=== PATIENT | female | born 1980 | race American Indian/Alaskan Native ===

== ENCOUNTER 2018-01-08 11:52 | Emergency (ER) | payer MEDICAID ==
[2018-01-08 11:57] VITALS: BMI 43.0
[2018-01-08 12:02] VITALS: RESP 18; TEMP 99.4
--- NOTE | 2018-01-08 13:19 | ED PDOC ---
Arrival/HPI - General Chief Complaint: Abdominal Pain Time Seen by Provider: 01/08/18 12:16 Historian: Patient - History of Present Illness Narrative History of Present Illness (Text): you were treated in the ED today for having intermittent menstrual spotting for several months, and scar discomfort from your prior site about 7 years ago and otherwise without any nausea/vomiting/headache/dizziness/ difficulty breathing/chest pain/abdomen pain/numbness/tingling/loss of limb function/pain with urination/vaginal discharge. You refused sexual disease testing or treatment at this time. 01/08/18 13:17 01/08/18 13:17 Time/Duration: > month (2) Symptom Onset: Gradual Symptom Course: Intermittent Quality: Aching Severity Level: 1 Activities at Onset: Rest Context: Sitting Past Medical History - Provider Review Nursing Documentation Reviewed: Yes - Travel History Have you recently traveled outside [place] w/in the past 3 mons?: No - Infectious Disease Hx of Infectious Diseases: None - Cardiac Hx Hypertension: Yes - Endocrine/Metabolic Hx Diabetes Mellitus Type 2: Yes - Psychiatric Hx Substance Use: No - Surgical History Hx Section: Yes (x2) - Anesthesia Hx Anesthesia Reactions: No Hx Malignant Hyperthermia: No Family/Social History - Physician Review Nursing Documentation Reviewed: Yes Family/Social History: No Known Family HX Smoking Status: Former Smoker Hx Alcohol Use: Yes Frequency of alcohol use: Socially Hx Substance Use: No Allergies/Home Meds Allergies/Adverse Reactions: Allergies No Known Allergies Allergy (Verified 01/08/18 12:12) Review of Systems - Review of Systems Constitutional: Normal Eyes: Normal ENT: Normal Respiratory: Normal Cardiovascular: Normal Gastrointestinal: Normal Genitourinary Female: Normal, Vaginal Bleeding, Other (pelvic discomfort) Musculoskeletal: Normal Skin: Normal Neurological: Normal Endocrine: Normal Hemo/Lymphatic: Normal Psychiatric: Normal Physical Exam Vital Signs Reviewed: Yes Vital Signs Temp Pulse Resp BP Pulse Ox 01/08/18 11:52 99.4 F 67 18 123/81 98 Temperature: Afebrile Blood Pressure: Hypertensive Pulse: Regular Respiratory Rate: Normal Appearance: Positive for: Well-Appearing, Non-Toxic, Comfortable Pain Distress: None Mental Status: Positive for: Alert and Oriented X 3 - Systems Exam Head: Present: Atraumatic, Normocephalic Pupils: Present: PERRL Extroacular Muscles: Present: EOMI Conjunctiva: Present: Normal Ears: Present: Normal Mouth: Present: Moist Mucous Membranes Pharnyx: Present: Normal Nose (External): Present: Atraumatic Nose (Internal): Present: Normal Inspection Neck: Present: Normal Range of Motion Respiratory/Chest: Present: Clear to Auscultation, Good Air Exchange Cardiovascular: Present: Regular Rate and Rhythm Abdomen: No: Tenderness, Distention, Normal Bowel Sounds, Peritoneal Signs, Rebound, Guarding, McBurney's Point Tender, Rovsing's Sign Present, Hernias, Feeding Tubes, Ostomy Tubes, Mass/Organomegaly, Scars, Other Back: Present: Normal Inspection Upper Extremity: Present: Normal Inspection Lower Extremity: Present: Normal Inspection Neurological: Present: GCS=15, CN II-XII Intact, Speech Normal, Motor Func Grossly Intact Skin: Present: Warm, Normal Color Psychiatric: Present: Alert, Oriented x 3, Normal Insight, Normal Concentration Medical Decision Making ED Course and Treatment: you were treated in the ED today for having intermittent menstrual spotting for several months, and scar discomfort from your prior site about 7 years ago and otherwise without any nausea/vomiting/headache/dizziness/ difficulty breathing/chest pain/abdomen pain/numbness/tingling/loss of limb function/pain with urination/vaginal discharge. You refused sexual disease testing or treatment at this time. You were otherwise breathing easily, pink moist lips, smiling and talking easily, good strength/sensation, alert/oriented , walking easily, clear lungs, no abdomen tenderness, refused pelvic exam and cautioned for complications and you stated will followup in gynecology clinic, no fever temp 99.4, stable heart rate 67, stable breathing rate 18, excellent oxygen level 98% room air, elevated blood pressure 123/81_ which we recommend repeat in 2-3 days primary care office to determine further treatment, you have blood tests no infection count 5, stable blood level hemoglobin 12/platelets 357 , stable chemistry, except mild elevated liver AST 45, urine test no acute sign of infection, urine test negative, radiology ultrasound pelvis unremarkable, motrin, observation done in the ED with improvement, you had mentioned intermittent symptoms and thus had a long discussion regarding further radiology imaging CT abdomen/pelvis but you refused and cautioned for complications but you stated you will followup with your gynecology physician Dr. Park for further radiology imaging, counselled to monitor symptoms and you wanted to go home. 1. Recommend motrin as directed for pain. 2. Recommend follow -up primary care 2 days to review symptoms, referral to gynecology clinic, referral to urology for trace blood in urine to ensure no complications, referral to gastroenterology clinic for mildly elevated liver AST 45 to ensure no complications. 4. If any worsening pain, fever, chills, nausea, vomiting, difficulty breathing, numbness, loss of limb function, pain with urination or any medical condition then return to the ED. lipase normal 134 01/08/18 16:03 01/08/18 16:10 01/08/18 16:12 Reassessment Condition: Re-examined, Improved - Lab Interpretations Lab Results: 01/08/18 13:43 01/08/18 13:43 Lab Results 01/08/18 13:43: Sodium 138, Potassium 4.0, Chloride 103, Carbon Dioxide 25, Anion Gap 15, BUN 12, Creatinine 0.8, Est GFR ( Amer) > 60, Est GFR (Non- Af Amer) > 60, Random Glucose 98, Calcium 10.0, Total Bilirubin 0.3, AST 45 H, ALT 40, Alkaline Phosphatase 45, Total Protein 8.6 H, Albumin 4.7, Globulin 3.9 , Albumin/Globulin Ratio 1.2, Lipase 134 01/08/18 13:43: Urine Color Yellow, Urine Appearance Clear, Urine pH 7.0, Ur Specific [place] 1.020, Urine Protein Negative, Urine Glucose (UA) Negative, Urine Ketones Negative, Urine Blood Trace-intact H, Urine Nitrate Negative, Urine Bilirubin Negative, Urine Urobilinogen 0.2, Ur Leukocyte Esterase Negative , Urine RBC 0 - 2, Urine WBC Negative, Ur Epithelial Cells 0 - 2, Urine Bacteria Neg 01/08/18 13:43: PT 11.8, INR 1.03, APTT 25.2 01/08/18 13:43: WBC 5.6, RBC 4.56, Hgb 12.3, Hct 37.3, MCV 81.8, MCH 27.0, MCHC 33.0, RDW 13.3, Plt Count 357, MPV 9.4, Gran % 56.5, Lymph % (Auto) 35.9 H, [place] % (Auto) 5.2, Eos % (Auto) 2.0, Baso % (Auto) 0.4, Gran # 3.15, Lymph # ( Auto) 2.0, [place] # (Auto) 0.3, Eos # (Auto) 0.1, Baso # (Auto) 0.02 I have reviewed the lab results: Yes - RAD Interpretation Radiology Orders: 01/08/18 13:14 PELVIS ULTRASOUND [US] Stat - Medication Orders Current Medication Orders: Discontinued Medications Ibuprofen (Motrin Tab) 800 mg PO STAT STA Stop: 01/08/18 13:17 Disposition/Present on Arrival - Present on Arrival Any Indicators Present on Arrival: No History of DVT/PE: No History of Uncontrolled Diabetes: No Urinary Catheter: No History of Decub. Ulcer: No History Surgical Site Infection Following: None - Disposition Have Diagnosis and Disposition been Completed?: Yes Diagnosis: Pelvic pain Disposition: HOME/ ROUTINE Disposition Time: 16:12 Patient Plan: Discharge Patient Problems: Current Active Problems Problem Status Onset Pelvic pain Acute Condition: IMPROVED Discharge Instructions (ExitCare): Acute Pelvic Pain (DC) Additional Instructions: ou were treated in the ED today for having intermittent menstrual spotting for several months, and scar discomfort from your prior site about 7 years ago and otherwise without any nausea/vomiting/headache/dizziness/ difficulty breathing/chest pain/abdomen pain/numbness/tingling/loss of limb function/pain with urination/vaginal discharge. You refused sexual disease testing or treatment at this time. You were otherwise breathing easily, pink moist lips, smiling and talking easily, good strength/sensation, alert/oriented , walking easily, clear lungs, no abdomen tenderness, refused pelvic exam and cautioned for complications and you stated will followup in gynecology clinic, no fever temp 99.4, stable heart rate 67, stable breathing rate 18, excellent oxygen level 98% room air, elevated blood pressure 123/81_ which we recommend repeat in 2-3 days primary care office to determine further treatment, you have blood tests no infection count 5, stable blood level hemoglobin 12/platelets 357 , stable chemistry, except mild elevated liver AST 45, urine test no acute sign of infection, urine test negative, radiology ultrasound pelvis unremarkable, motrin, observation done in the ED with improvement, you had mentioned intermittent symptoms and thus had a long discussion regarding further radiology imaging CT abdomen/pelvis but you refused and cautioned for complications but you stated you will followup with your gynecology physician Dr. Park for further radiology imaging, counselled to monitor symptoms and you wanted to go home. 1. Recommend motrin as directed for pain. 2. Recommend follow -up primary care 2 days to review symptoms, referral to gynecology clinic, referral to urology for trace blood in urine to ensure no complications, referral to gastroenterology clinic for mildly elevated liver AST 45 to ensure no complications. 4. If any worsening pain, fever, chills, nausea, vomiting, difficulty breathing, numbness, loss of limb function, pain with urination or any medical condition then return to the ED. Forms: [email or web address] ([place])
[2018-01-08 13:51] LABS: BASO # 0.02 K/mm3 (0.0-2.0); BASO % 0.4 % (0.0-3.0); EOS # 0.1 (0.0-0.7); GRAN # 3.15 (1.4-6.5); GRAN % 56.5 % (50.0-68.0); HEMOGLOBIN 12.3 g/dL (12.0-16.0); LYMPH % 35.9 % (22.0-35.0); MEAN CELL VOLUME 81.8 fl (80.0-105.0); MEAN PLATELET VOLUME 9.4 fl (7.0-11.0); MONO # 0.3 (0.1-0.6); MONO % 5.2 % (1.0-6.0); RBC 4.56 10^6/uL (3.5-6.1); RED CELL DISTRIBUTION WIDTH 13.3 % (11.5-14.5); WHITE BLOOD COUNT 5.6 10^3/ul (4.5-11.0)
[2018-01-08 13:52] LABS: URINE BILIRUBIN NEGATIVE (NEGATIVE); URINE BLOOD TRACE-INTACT (NEGATIVE); URINE GLUCOSE (UA) NEGATIVE (NEGATIVE); URINE LEUKOCYTE ESTERASE NEGATIVE Leu/uL (NEGATIVE); URINE PROTEIN NEGATIVE mg/dL (<30 mg/dL); URINE UROBILINOGEN 0.2 E.U./dL (<1 E.U./dL)
[2018-01-08 13:54] LABS: URINE APPEARANCE CLEAR (CLEAR); URINE COLOR YELLOW (YELLOW)
[2018-01-08 14:02] LABS: INR 1.03 (0.93-1.08); PARTIAL THROMBOPLASTIN TIME 25.2 Seconds (25.1-36.5); PROTHROMBIN TIME 11.8 SECONDS (9.4-12.5)
[2018-01-08 14:13] LABS: ALB/GLOB RATIO 1.2 (1.1-1.8); ALBUMIN 4.7 g/dL (3.0-4.8); ALT/SGPT 40 U/L (7-56); AST/SGOT 45 U/L (14-36); BLOOD UREA NITROGEN 12 mg/dL (7-21); GFR AFRICAN-AMERICAN > 60; GFR NON-AFRICAN AMERICAN > 60; LIPASE 134 U/L (23-300)
[2018-01-08 15:19] LABS: URINE BACTERIA NEG (NEG); URINE EPITHELIAL CELLS 0 - 2 /hpf (0-5); URINE RBC 0 - 2 /hpf (0-2); URINE WBC NEGATIVE /hpf (0-6)
--- NOTE | 2018-01-08 15:40 | US ---
HISTORY: 37-year-old pelvic pain/spotting. COMPARISON: None available. TECHNIQUE: Transabdominal sonographic evaluation of the pelvis performed. Note that the examination is limited due to body habitus and bowel gas FINDINGS: UTERUS: Measures 12.5 x 5.4 x 5.6 cm. Normal in size and appearance. No fibroid or other mass lesion seen. ENDOMETRIUM: Measures evaluation of the pelvis performed 6.2 mm in diameter. Unremarkable. CERVIX: Cervix measures approximate 3.65 cm No cervical abnormality identified. RIGHT OVARY: Not visualized LEFT OVARY: Measures 2.5 x 2.2 x 2.4 cm. No solid mass. Normal flow. FREE FLUID: No significant free fluid noted. OTHER FINDINGS: None. IMPRESSION: Limited study due to body habitus and bowel gas. Right ovary not visualized. Study is otherwise unremarkable.
[2018-01-08 16:29] VITALS: BP 126/77; PULSE 76; O2SAT 100
== END 2018-01-08 16:29 | disposition home or self-care (01) ==
LOC: ED 11:52 → MERGE 11:52 → ED 16:29
DX: R10.2 Pelvic and perineal pain (principal); I10 Essential (primary) hypertension; E11.9 Type 2 diabetes mellitus without complications; Z87.891 Personal history of nicotine dependence

== ENCOUNTER 2018-01-10 08:59 | Emergency (ER) | payer MEDICAID ==
[2018-01-10 09:29] VITALS: BMI 43.7
[2018-01-10 09:30] VITALS: BP 125/76; PULSE 62; RESP 18; TEMP 98.2; O2SAT 99
--- NOTE | 2018-01-10 09:46 | ED PDOC ---
Arrival/HPI - General Chief Complaint: Abdominal Pain Time Seen by Provider: 01/10/18 09:06 Historian: Patient - History of Present Illness Narrative History of Present Illness (Text): 01/10/18 09:43 37yo female with PMHx of hypertension and Diabetes present with complaint of tearing pain inside her surgical incision site. she reports 7 years ago, without complication. Notes that she started having pain in the incision site intermittently for months now, but the pain became worse recently. States she was seen here 2days ago for same pain and was offered CT, but she declined. she came back to ED today for the CT. She denies nausea, vomiting, diarrhea, constipation, fever, chills, vaginal discharge, urinary symptoms, any other complaint. Past Medical History - Provider Review Nursing Documentation Reviewed: Yes - Infectious Disease Hx of Infectious Diseases: None - Cardiac Hx Cardiac Disorders: Yes Hx Hypertension: Yes - Pulmonary Hx Respiratory Disorders: No - Neurological Hx Neurological Disorder: No - HEENT Hx HEENT Disorder: No - Renal Hx Renal Disorder: No - Endocrine/Metabolic Hx Endocrine Disorders: Yes Hx Diabetes Mellitus Type 2: Yes - Hematological/Oncological Hx Blood Disorders: No - Integumentary Hx Dermatological Disorder: No - Musculoskeletal/Rheumatological Hx Musculoskeletal Disorders: No - Gastrointestinal Hx Gastrointestinal Disorders: No - Genitourinary/Gynecological Hx Genitourinary Disorders: No - Psychiatric Hx Psychophysiologic Disorder: No Hx Substance Use: No - Surgical History Hx Section: Yes (x2) - Anesthesia Hx Anesthesia Reactions: No Hx Malignant Hyperthermia: No Family/Social History - Physician Review Nursing Documentation Reviewed: Yes Family/Social History: Unknown Family HX Smoking Status: Former Smoker Hx Alcohol Use: Yes Hx Substance Use: No Allergies/Home Meds Allergies/Adverse Reactions: Allergies No Known Allergies Allergy (Verified 01/10/18 09:16) Home Medications: Home Meds Medication Instructions Recorded Confirmed Losartan [Cozaar] 50 mg PO DAILY 01/10/18 01/10/18 metFORMIN [glucOPHAGE] 500 mg PO BID 01/10/18 01/10/18 Review of Systems - Physician Review All systems were reviewed & negative as marked: Yes - Review of Systems Constitutional: Normal Eyes: Normal ENT: Normal Respiratory: Normal Cardiovascular: Normal Gastrointestinal: Abdominal Pain. absent: Constipation, Diarrhea, Nausea, Vomiting, Hematochezia, Hematemesis Genitourinary Female: Normal Musculoskeletal: Normal Skin: Normal Neurological: Normal Endocrine: Normal Hemo/Lymphatic: Normal Psychiatric: Normal Physical Exam Vital Signs Reviewed: Yes Vital Signs Temp Pulse Resp BP Pulse Ox 01/10/18 09:29 98.2 F 62 18 125/76 99 Temperature: Afebrile Blood Pressure: Normal Pulse: Regular Respiratory Rate: Normal Appearance: Positive for: Well-Appearing, Non-Toxic, Comfortable Pain Distress: None Mental Status: Positive for: Alert and Oriented X 3 - Systems Exam Head: Present: Atraumatic, Normocephalic Pupils: Present: PERRL Extroacular Muscles: Present: EOMI Conjunctiva: Present: Normal Mouth: Present: Moist Mucous Membranes Neck: Present: Normal Range of Motion Respiratory/Chest: Present: Clear to Auscultation, Good Air Exchange. No: Respiratory Distress, Accessory Muscle Use Cardiovascular: Present: Regular Rate and Rhythm, Normal S1, S2. No: Murmurs Abdomen: Present: Tenderness (OVer the incision site on the pelvic area. No erythema. No sign of infection), Other (Soft). No: Distention, Peritoneal Signs , Rebound, Guarding, McBurney's Point Tender, Rovsing's Sign Present Back: Present: Normal Inspection. No: CVA Tenderness Upper Extremity: Present: Normal Inspection. No: Cyanosis, Edema Lower Extremity: Present: Normal Inspection. No: Edema Neurological: Present: GCS=15, CN II-XII Intact, Speech Normal Skin: Present: Warm, Dry, Normal Color. No: Rashes Psychiatric: Present: Alert, Oriented x 3, Normal Insight, Normal Concentration Medical Decision Making ED Course and Treatment: 01/10/18 11:32 Pt presented in ED for stated history. She was comfortable in ED. Per the RN, she declined pain medication in ED Her labs from 01/06/18 was reviewed and unremarkable abdominal/Pelvic CT REPRODUCTIVE: There is a thick-walled left ovarian cyst measuring 15 mm in diameter. This is consistent with a recently ruptured cyst. There is no fluid in the cul-de-sac. The uterus is unremarkable BONES: No acute fracture. OTHER FINDINGS: None. IMPRESSION: Thick-walled enhancing left ovarian cyst consistent with recent rupture. No evidence of appendicitis or diverticulitis Result was DW the pt. She have a [employer] and was referred for outpt work up. Rx of Ibuprofen 600mg was given for pain control. Advised TRT ED for any new or worsening symptoms. - RAD Interpretation Radiology Orders: 01/10/18 09:25 ABD & PELVIS IV CONTRAST ONLY [CT] Stat - Medication Orders Current Medication Orders: Discontinued Medications Ketorolac Tromethamine (Toradol) 30 mg IVP STAT STA Stop: 01/10/18 11:08 Last Admin: 01/10/18 11:18 Dose: Not Given Non-Admin Reason: Patient Refused Disposition/Present on Arrival - Present on Arrival Any Indicators Present on Arrival: No History of DVT/PE: No History of Uncontrolled Diabetes: Yes Urinary Catheter: No History of Decub. Ulcer: No History Surgical Site Infection Following: None - Disposition Have Diagnosis and Disposition been Completed?: Yes Diagnosis: Abdominal pain, Ovarian cyst Disposition: HOME/ ROUTINE Disposition Time: 11:10 Patient Plan: Discharge Patient Problems: Current Active Problems Problem Status Onset Abdominal pain Acute Ovarian cyst Acute Condition: STABLE Discharge Instructions (ExitCare): Ovarian Cysts, Acute Abdomen (Belly Pain), Adult (DC) Additional Instructions: Follow up with your [employer] Return to ED for any new or worsening symptoms Prescriptions: Ibuprofen [Motrin Tab] 600 mg PO Q6 #15 tab Referrals: Kari Zaragoza MD [Primary Care Provider] - Follow up with primary Forms: [employer] (Malay)
--- NOTE | 2018-01-10 11:00 | CT ---
PROCEDURE: CT Abdomen and Pelvis with contrast HISTORY: Pelvic pain COMPARISON: None. TECHNIQUE: Contrast dose: 150 cc of Omni 350 Radiation dose: Total exam DLP = 1003 mGy-cm. This CT exam was performed using one or more of the following dose reduction techniques: Automated exposure control, adjustment of the mA and/or kV according to patient size, and/or use of iterative reconstruction technique. FINDINGS: LOWER THORAX: Unremarkable. LIVER: Unremarkable. No gross lesion or ductal dilatation. GALLBLADDER AND BILE DUCTS: Unremarkable. PANCREAS: Unremarkable. No gross lesion or ductal dilatation. SPLEEN: Unremarkable. ADRENALS: Unremarkable. No mass. KIDNEYS AND URETERS: Unremarkable. No hydronephrosis. No solid mass. VASCULATURE: Unremarkable. No aortic aneurysm. BOWEL: Unremarkable. No obstruction. No gross mural thickening. APPENDIX: Normal appendix. PERITONEUM: Unremarkable. No free fluid. No free air. LYMPH NODES: Unremarkable. No enlarged lymph nodes. BLADDER: Unremarkable. REPRODUCTIVE: There is a thick-walled left ovarian cyst measuring 15 mm in diameter. This is consistent with a recently ruptured cyst. There is no fluid in the cul-de-sac. The uterus is unremarkable BONES: No acute fracture. OTHER FINDINGS: None. IMPRESSION: Thick-walled enhancing left ovarian cyst consistent with recent rupture. No evidence of appendicitis or diverticulitis
== END 2018-01-10 11:35 | disposition home or self-care (01) ==
LOC: ED 08:59
DX: N83.202 Unspecified ovarian cyst, left side (principal); R10.9 Unspecified abdominal pain
CPT/HCPCS: 74177; 99283; Q9967